=== PATIENT | female | born 1985 | race Hispanic/Latino ===

== ENCOUNTER 2024-11-18 18:15 | Emergency (ER) | payer BC ==
[~2024-11-18] VITALS: Ht 160 cm; Wt 73.0 kg
[2024-11-18] MEDS ORDERED: LEVOTHYROXINE13 MCG PO (18:35)
[2024-11-18 19:30] VITALS: BP 135/75
== END 2024-11-18 19:30 | disposition home or self-care (01) ==
LOC: ED 18:15
DX: S00.33XA Contusion of nose, initial encounter (principal); E11.9 Type 2 diabetes mellitus without complications; E03.9 Hypothyroidism, unspecified; Y09 Assault by unspecified means
CPT/HCPCS: 99283